=== PATIENT | female | born 1975 | race Caucasian/White ===

== ENCOUNTER 2019-06-02 10:04 | Emergency (ER) | payer OTHER ==
[2019-06-02] MEDS ORDERED: Sodium Chloride 0.9% 10 ML Syringe FLUSH PRN (10:49)
--- NOTE | 2019-06-02 10:52 | EDM.PDOC ---
<Bunny Golden - Last Filed: 06/02/19 11:03> ED HPI GENERAL MEDICAL PROBLEM - General Chief Complaint: Lower Extremity Injury/Pain Stated Complaint: LT LEG AND FOOT NUMBNESS Time Seen by Provider: 06/02/19 12:00 Source of Information: Reports: Patient History Limitations: Reports: No Limitations - History of Present Illness INITIAL COMMENTS - FREE TEXT/NARRATIVE: Patient presents to ED today with complain of progressive tingling sensation starting in her lower limb and spreading upward. Patient states that on 05/28/19 she noticed a tingling sensation in the toes of her left foot. This sensation slowly progressed to include her entire foot. Patient was not entirely concerned with the problem until yesterday when the sensation began to spread upwards into her thigh and hip. She is a resident of [place] and called the clinic to see if she should be seen, where she was urged to go the ED. She chose to come to [place]. She noticed on her way to the ED that she felt the sensation in her left elbow and hand as well. She has no chronic medical conditions and takes no prescription medications. She has not been ill recently. She notes no systemic symptoms. She has not had any recent vaccinations. She has no history of blood clots but is unaware of family history as she is adopted. She has a history of a pinched nerve but states that the sensation she is currently experiencing is not similar to that episode. She can find no events in her life that correlate with the onset of her symptoms. Onset: Gradual Duration: Day(s): Location: Reports: Upper Extremity, Left, Lower Extremity, Left Quality: Reports: Other (Parasthesia) Improves with: Reports: None Worsens with: Reports: None Associated Symptoms: Reports: No Other Symptoms - Related Data Allergies Allergy/AdvReac Type Severity Reaction Status Date / Time amoxicillin Allergy Cannot Verified 06/02/19 10:17 Remember ciprofloxacin [From Cipro] Allergy Anaphylactic Verified 06/02/19 10:17 Shock Home Meds: Home Meds . 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: Psychiatric History: Reports: Anxiety, Depression - Infectious Disease History Infectious Disease History: Reports: Chicken Pox - Past Surgical History HEENT Surgical History: Reports: Oral Surgery Endocrine Surgical History: Reports: Thyroidectomy Musculoskeletal Surgical History: Reports: Other (See Below) Other Musculoskeletal Surgeries/Procedures:: right foot surgery Social & Family History - Family History Family Medical History: Noncontributory - Tobacco Use Smoking Status *Q: Current Every Day Smoker Years of Tobacco use: 20 Packs/Tins Daily: 0.5 Second Hand Smoke Exposure: No - Caffeine Use Caffeine Use: Reports: Coffee - Recreational Drug Use Recreational Drug Use: No Review of Systems - Review of Systems Review Of Systems: See Below Constitutional: Reports: No Symptoms Eyes: Reports: No Symptoms Ears: Reports: No Symptoms Nose: Reports: No Symptoms Mouth/Throat: Reports: No Symptoms Respiratory: Reports: No Symptoms Cardiovascular: Reports: No Symptoms GI/Abdominal: Denies: Diarrhea, Nausea, Vomiting Genitourinary: Reports: No Symptoms Musculoskeletal: Denies: Leg Pain, Foot Pain, Joint Pain Skin: Reports: No Symptoms Neurological: Reports: Paresthesia, Tingling, Weakness. Denies: Dizziness, Headache, Change in Speech Psychiatric: Reports: No Symptoms ED EXAM, GENERAL - Physical Exam Exam: See Below Exam Limited By: No Limitations General Appearance: Alert, No Apparent Distress Eye Exam: Bilateral Eye: Normal Inspection Ears: Normal External Exam Nose: Normal Inspection Throat/Mouth: Normal Inspection Head: Atraumatic, Normocephalic Neck: Normal Inspection Respiratory/Chest: No Respiratory Distress Cardiovascular: Normal Peripheral Pulses, No Edema Extremities: Non-Tender, No Pedal Edema, Normal Capillary Refill. No: Joint Swelling Neurological: Alert, Oriented, CN II-XII Intact, Normal Cognition, Normal Gait. No: Sensory/Motor Deficit (L side weakness) Psychiatric: Normal Affect, Normal Mood Skin Exam: Warm, Dry, Intact, Normal Color Course - Vital Signs Last Recorded V/S: Last Vital Signs Temp 97.1 F 06/02/19 10:13 Pulse 102 H 06/02/19 10:13 Resp 14 06/02/19 10:13 BP 139/89 06/02/19 10:13 Pulse Ox 94 L 06/02/19 10:13 - Orders/Labs/Meds Orders: Active Orders 24 hr Category Date Time Status Cardiac Monitoring [RC] . DIRECTED Care 06/02/19 10:49 Active EKG Documentation Completion [RC] STAT Care 06/02/19 10:49 Active Peripheral IV Care [RC] . DIRECTED Care 06/02/19 10:50 Active Peripheral IV Insertion Adult [OM.PC] Stat Oth 06/02/19 10:49 Ordered Labs: Laboratory Tests 06/02/19 06/02/19 06/02/19 Range/Units 11:09 11:09 11:09 WBC 7.52 (3.98-10.04) K/mm3 RBC 4.50 (3.98-5.22) M/mm3 Hgb 14.7 (11.2-15.7) gm/L Hct 43.1 (34.1-44.9) % MCV 95.8 H (79.4-94.8) fl MCH 32.7 H (25.6-32.2) pg MCHC 34.1 (32.2-35.5) g/dl RDW Std Deviation 47.1 H (36.4-46.3) fL Plt Count 237 (182-369) K/mm3 MPV 10.0 (9.4-12.3) fl Neut % (Auto) 65.2 (34.0-71.1) % Lymph % (Auto) 25.8 (19.3-51.7) % [place] % (Auto) 6.5 (4.7-12.5) % Eos % (Auto) 2.0 (0.7-5.8) Baso % (Auto) 0.4 (0.1-1.2) % Neut # (Auto) 4.90 (1.56-6.13) K/mm3 Lymph # (Auto) 1.94 (1.18-3.74) K/mm3 [place] # (Auto) 0.49 H (0.24-0.36) K/mm3 Eos # (Auto) 0.15 (0.04-0.36) K/mm3 Baso # (Auto) 0.03 (0.01-0.08) K/mm3 PT 10.6 (9.7-12.0) SECONDS INR 0.97 APTT 28 (22-31) SECONDS Sodium 142 (136-145) mEq/L Potassium 3.9 (3.5-5.1) mEq/L Chloride 106 (98-107) mEq/L Carbon Dioxide 26 (21-32) mEq/L Anion Gap 13.9 (5-15) BUN 9 (7-18) mg/dL Creatinine 0.8 (0.55-1.02) mg/dL Est Cr Clr Drug Dosing 80.75 mL/min Estimated GFR (MDRD) > 60 (>60) mL/min BUN/Creatinine Ratio 11.3 L (14-18) Glucose 72 L (74-106) mg/dL Calcium 9.0 (8.5-10.1) mg/dL Total Bilirubin 0.5 (0.2-1.0) mg/dL AST 12 L (15-37) U/L ALT 22 (14-59) U/L Alkaline Phosphatase 79 (46-116) U/L Troponin I < 0.017 (0.00-0.056) ng/mL Total Protein 6.9 (6.4-8.2) g/dl Albumin 3.7 (3.4-5.0) g/dl Globulin 3.2 gm/dL Albumin/Globulin Ratio 1.2 (1-2) Meds: Medications Discontinued Medications Generic Name Dose Route Start Last Admin Trade Name Freq PRN Reason Stop Dose Admin Sodium Chloride 10 ml 06/02/19 10:49 Saline Flush FLUSH ASDIRECTED PRN Keep Vein Open Departure - Departure Disposition: Home, Self-Care 01 Clinical Impression: Left arm numbness, Left leg numbness, Left arm weakness, Left leg weakness - Discharge Information Referrals: Gayle Retana NP [Primary Care Provider] - Forms: ED Department Discharge Additional Instructions: Go home and get some rest. Follow up with a neurologist at [place] within a week. Please call . Please return if you are worse. - My Orders Last 24 Hours: My Active Orders 06/02/19 10:49 Cardiac Monitoring [RC] . DIRECTED EKG Documentation Completion [RC] STAT Peripheral IV Insertion Adult [OM.PC] Stat 06/02/19 10:50 Peripheral IV Care [RC] . DIRECTED - Assessment/Plan Last 24 Hours: My Active Orders 06/02/19 10:49 Cardiac Monitoring [RC] . DIRECTED EKG Documentation Completion [RC] STAT Peripheral IV Insertion Adult [OM.PC] Stat 06/02/19 10:50 Peripheral IV Care [RC] . DIRECTED <Shawn Noe - Last Filed: 06/02/19 15:02> EKG INTERPRETATION EKG Date: 06/02/19 Time: 11:00 Rhythm: NSR Rate (Beats/Min): 96 [place]: Normal P-Wave: Present QRS: Normal ST-T: Normal QT: Normal Course - Re-Assessments/Exams Free Text/Narrative Re-Assessment/Exam: 06/02/19 14:50 I examined the patient myself and I agree with Bunny's assessment and plan. I ordered an IV saline lock, EKG, labs and a CT of her head. The CT of her head looks good. Her CBC and CMP look good. Her PT and PTT look good. Her troponin is negative. 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 MRI study of the brain is otherwise unremarkable. No acute diffusion abnormalities are seen. I called the neurologist guard immigration Dr Chavez and he would like to see the patient in the clinic. 06/02/19 15:02 Departure - Departure Time of Disposition: 15:00 Condition: Good - Discharge Information *PRESCRIPTION DRUG MONITORING PROGRAM REVIEWED*: No *COPY OF PRESCRIPTION DRUG MONITORING REPORT IN PATIENT JIMENA: No
--- NOTE | 2019-06-02 11:52 | CT ---
Head CT Technique: Multiple axial sections through the brain were obtained. Intravenous contrast was not utilized. Comparison: No prior intracranial imaging. Findings: Ventricles along with basal cisterns and sulci over the convexities are within normal limits for the patient's age. No abnormal parenchymal densities are seen. No evidence of intracranial hemorrhage. No midline shift or mass effect is seen. Bone window settings were reviewed which show the visualized mastoid sinuses to appear clear. Visualized paranasal sinuses show nothing acute. No acute calvarial abnormality is appreciated. Impression: 1. Nothing acute is appreciated on noncontrast head CT exam. Diagnostic code #1
--- NOTE | 2019-06-02 13:10 | MR ---
MRI brain Technique: T1 and T2 FLAIR sagittal; T2, T2 FLAIR, T1 and diffusion axial; T1-weighted coronal images were obtained of the brain. Comparison: Prior head CT study performed earlier on the same day (11:13 AM). Findings: Ventricles along with basal cisterns and sulci over the convexities are within normal limits for the patient's age. Retention cyst is noted within the right maxillary sinus measuring 1.8 cm in size. Normal signal void is seen within the major cerebral arteries within the skull base. No abnormal signal is seen within the brain parenchyma. No acute diffusion abnormalities are seen. Impression: 1. 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 2. MRI study of the brain is otherwise unremarkable. No acute diffusion abnormalities are seen. Diagnostic code #2
== END 2019-06-02 12:50 | disposition home or self-care (01) ==
LOC: JD.ED 10:04
DX: R20.0 Anesthesia of skin (principal); M62.81 Muscle weakness (generalized); F17.210 Nicotine dependence, cigarettes, uncomplicated; Z88.1 Allergy status to other antibiotic agents
CPT/HCPCS: 36415; 70450; 70450-26; 70551; 70551-26; 80053; 84484; 85025; 85610; 85730; 93005; 93010; 99283; 99284-25